=== PATIENT | female | born 1995 | race Caucasian/White ===

== ENCOUNTER → 2021-07-03 14:37 | Outpatient (CLI) | payer OTHER, SELFPAY ==
[2021-07-03 14:52] LABS: Absolute Lymphocyte Count 2.67 X10^3/uL (0.83-4.51); Absolute Neutrophil Count 9.2 X10^3/uL (2.0-7.7); Basophil# 0.06 X10^3/uL; Basophil% 0.4 % (0-1); Eosinophil# 0.36 X10^3/uL; Eosinophils% 2.6 % (0-5); Hematocrit 30.5 % (37-47); Hemoglobin 10.3 g/dL (12.0-15.0); Lymphocyte # 2.67 X10^3/ul (0.83-4.51); Mean Corp Hgb Conc 33.8 g/dL (32-36); Mean Corpuscular Hgb 28.9 pg (27.0-32.0); Mean Corpuscular Volume 85.7 fL (81-99); Mean Platelet Vol. 8.7 fl (6.2-12.0); Monocyte# 1.39 X10^3/uL; Monocyte% 9.9 % (0-10); NRBC Flagged by Analyzer 0 % (0-5); Neutrophil # 9.24 X10^3/uL (2.7-7.7); Platelet Count 282 K/mm3 (150-450); RBC Distribution Width CV 12.9 % (11.6-14.6); RBC Distribution Width SD 39.9 fl (35.1-43.9); Red Blood Count 3.56 M/mm3 (4.2-5.4)
[2021-07-03 15:03] LABS: Glucose Challenge Gest 1H 50g 90 mg/dL (70-140)
== END ==
PROVIDERS: PCP Family Medicine; Referring Provider Obstetrics & Gynecology; Visit Provider Obstetrics & Gynecology
DX: Z34.90 Encounter for supervision of normal pregnancy, unspecified, unspecified trimester (principal)
CPT/HCPCS: 36415; 82950; 85025

== ENCOUNTER 2021-08-28 16:48 | Outpatient (CLI) | payer OTHER, SELFPAY | END 2021-08-28 23:59 | disposition short-term general hospital (02) | LOC: LABSPEC 16:50 | PROVIDERS: PCP Family Medicine; Referring Provider Obstetrics & Gynecology; Visit Provider Obstetrics & Gynecology | DX: Z34.93 Encounter for supervision of normal pregnancy, unspecified, third trimester (principal) | CPT/HCPCS: 87081; 87186 ==

== ENCOUNTER 2021-10-01 19:52 | Inpatient (IN) | payer OTHER, SELFPAY ==
[2021-10-01 19:58] VITALS: BMI 37.6
[2021-10-01 20:12] VITALS: BP 142/82; PULSE 84; O2SAT 97
[2021-10-01] MEDS: Lactated Ringers 1,000 ML 200 ML IV (20:20)
[2021-10-01] MEDS: Lactated Ringers 500 ML 999 ML IV (20:33)
[2021-10-01] MEDS: 0.9% Normal Saline Single 100 ML IV.SOLN. INTRA-UTER (20:53)
[2021-10-01 20:54] LABS: Absolute Neutrophil Count 6.9 X10^3/uL (2.0-7.7); Basophil# 0.05 X10^3/uL; Basophil% 0.5 % (0-1); Eosinophil# 0.22 X10^3/uL; Hemoglobin 11.9 g/dL (12.0-15.0); Lymphocyte % 21.3 % (19-41); Mean Corpuscular Hgb 28.4 pg (27.0-32.0); Mean Corpuscular Volume 83.5 fL (81-99); Mean Platelet Vol. 9.6 fl (6.2-12.0); Monocyte# 1.29 X10^3/uL; Monocyte% 11.9 % (0-10); NRBC Flagged by Analyzer 0 % (0-5); Neutrophil # 6.92 X10^3/uL (2.7-7.7); Neutrophil % 63.9 % (47-70); Platelet Count 280 K/mm3 (150-450); RBC Distribution Width CV 14.3 % (11.6-14.6); RBC Distribution Width SD 43.5 fl (35.1-43.9); Red Blood Count 4.19 M/mm3 (4.2-5.4); White Blood Count 10.8 K/mm3 (4.4-11.0)
--- NOTE | 2021-10-01 20:58 | HP.PCM.OB_ITS ---
HPI - General General Date of Admission: 10/01/21 HPI Narrative WILLIAM CASEY, is a 26 F who presents for IOL secondary to postdates Maternal Data Information SUPRIYA Calculator Estimated Delivery Date Method Current WG Current Estimate 09/23/21 Manual 41w 1d PFSH PFSH Home Medications multivitamin no.47-iron fum 27 mg-folate no.1 1 mg-dha 300 mg capsule cap PO DAILY 05/22/21 [History Last Taken 09/30/21] famotidine [Pepcid] 20 mg PO DAILY 10/01/21 [History Last Taken 09/30/21] Allergy/AdvReac Type Severity Reaction Status Date / Time No Known Allergies Allergy Verified 09/26/21 16:08 Surgical History History of surgery on arm Social History household members: spouse housing: house current occupational status: employed current occupation: [employer] pets and animals: Yes Smoking Status: Never smoker second hand exposure: No alcohol intake: current alcohol intake frequency: holidays/special occasions only details: not while substance use type: does not use seatbelt use: always do you feel safe at home: Yes additional social history: - Dayday History 1 Elective abortions Hx Para 0 Spontaneous abortions Hx # Term Pregnancies Ectopic pregnancies Hx # Pregnancies Multiple births # of living children Visit Details Expected Delivery Route/Plan Labor Preferences- CB/BF classes: info given. pt interested labor support person:/Dayday labor intervention preferences: [] pain management options preferred: limited unless needed cut cord/dad catch: yes : yes PP control planned: discussed discussed possible routes of delivery and associated risks: [] special requests: [] Plans Covid status: symptoms/loss of smell Mar 2021. No test. Flu vaccine: decline Tdap vaccine: decline Rhogam: na LARC form signed: yes movement and labor precautions reviewed. Problem list reviewed and updated with the most current plan of care details and appropriate orders placed. Relevant counseling for the gestational age provided. Continue routine care and follow up unless otherwise noted in visit notes/problem list details OB Flowsheet Initial Weight: 200 lb Date -?-?-?-?-?-?-?-?-?-?-?-?- EGA Weight BP Urine Prot -?-?-?-?-?-?-?-?-?-?-?-?- Glucose FHR FuHt Pres Dilation -?-?-?-?-?-?-?-?-?-?-?-?- Effaced St Visit Note 06/12/21 -?-?-?-?-?-?-?-?-?-?-?-?- 25w 2d 202 lb 6 oz (+2 lb 6 oz) 120/68 Negative -?-?-?-?-?-?-?-?-?-?-?-?- Negative 125 -?-?-?-?-?-?-?-?-?-?-?-?- JV- release of r rafaels form signed today. Mattie on phone of prenatals gave us her due date today. No complaints. 07/03/21 -?-?-?-?-?-?-?-?-?-?-?-?- 28w 2d 212 lb 2 oz (+12 lb 2 oz) 110/60 Negative -?-?-?-?-?-?-?-?-?-?-?-?- Negative 132 28 -?-?-?-?-?-?-?-?-?-?-?-?- MH-No Vb, LOF. G ood FM. Still need labs and anatomy US from [facility]. Requested again. States covid in March:baby ASA daily and growth US 32 and 36 wk. Anemia-will start Fe. Nl glucose 07/18/21 -?-?-?-?-?-?-?-?-?-?-?-?- 30w 3d 212 lb (+12 lb) 130/56 Negative -?-?-?-?-?-?-?-?-?-?-?-?- Negative 126 30 -?-?-?-?-?-?-?-?-?-?-?-?- JV- no lof, vagi nal bleeding, or dec fm. growth us scheduled with MFM on 08/02 due to h/o covid in preg. 08/02/21 -?-?-?-?-?-?-?-?-?-?-?-?- 32w 4d 215 lb (+15 lb) 120/68 Negative -?-?-?-?-?-?-?-?-?-?-?-?- Negative 125 32 Cephalic -?-?-?-?-?-?-?-?-?-?-?-?- SM- no vb lof go od fm no reuglar ctx 08/28/21 -?-?-?-?-?-?-?-?-?-?-?-?- 36w 2d 220 lb (+20 lb) 130/74 Negative -?-?-?-?-?-?-?-?-?-?-?-?- Negative 130 36 Cephalic -?-?-?-?-?-?-?-?-?-?-?-?- SM- SM- ordered us for h/o covid . no vb lof good fm no reuglar ctx. 09/04/21 -?-?-?-?-?-?-?-?-?-?-?-?- 37w 2d 223 lb 2 oz (+23 lb 2 oz) 118/78 Negative -?-?-?-?-?-?-?-?-?-?-?-?- Negative 160 37 Cephalic -?-?-?-?-?-?-?-?-?-?-?-?- JV- GBS pos. lab or precautions discussed. No lof, vb, or dec fm. 09/11/21 -?-?-?-?-?-?-?-?-?-?-?-?- 38w 2d 225 lb (+25 lb) 122/80 Negative -?-?-?-?-?-?-?-?-?-?-?-?- Negative 125 38 Cephalic 1 -?-?-?-?-?-?-?-?-?-?-?-?- SM- no vb lof go od fm no regular ctx 09/18/21 -?-?-?-?-?-?-?-?-?-?-?-?- 39w 2d 226 lb 2 oz (+26 lb 2 oz) 120/82 Negative -?-?-?-?-?-?-?-?-?-?-?-?- Negative 124 38 Cephalic 1 -?-?-?-?-?-?-?-?-?-?-?-?- 30 -2 JV- no lof , vaginal bleeding or dec fm. plan for 41 week IOL if no labor this week. 09/26/21 -?-?-?-?-?-?-?-?-?-?-?-?- 40w 3d 226 lb (+26 lb) 130/80 -?-?-?-?-?-?-?-?-?-?-?-?- 139 38 Cephalic 2 -?-?-?-?-?-?-?-?-?-?-?-?- 80 -2 JV- no lof ,vaginal bleeding, or dec fm. plan for IOL at 41 weeks. 10/01/21 -?-?-?-?-?-?-?-?-?-?-?-?- 41w 1d 226 lb 6.636 oz (+26 lb 6.636 oz) 142/82 -?-?-?-?-?-?-?-?-?-?-?-?- -?-?-?-?-?-?-?-?-?-?-?-?- NST FHR Rate Baby A Baseline: 130 Variability:: Moderate Accelerations:: 15 x 15 Decelerations:: Late (isolated, resolved with IVFs and position changes) NST Reactive:: Yes Uterine Activity:: irregular ROS Constitutional Constitutional: Reports systems reviewed and no addt'l complaints, except as documented Eyes Eyes: Denies change in vision ENT HEENT: Reports systems reviewed and no addt'l complaints, except as documented; Denies headache(s) Cardiovascular Cardiovascular: Reports systems reviewed and no addt'l complaints, except as documented; Denies chest pain or dyspnea Respiratory/Chest Respiratory/Chest: Reports systems reviewed and no addt'l complaints, except as documented Gastrointestinal Gastrointestinal: Reports systems reviewed and no addt'l complaints, except as documented; Denies abdominal pain Genitourinary Genitourinary: Reports systems reviewed and no addt'l complaints, except as documented, contractions Details: present (irregular) and movement Details: present; Denies dysuria or genital lesions Musculoskeletal Musculoskeletal: Reports systems reviewed and no addt'l complaints, except as documented Neurologic Neurologic: Reports systems reviewed and no addt'l complaints, except as documented Endocrine Endocrinology: Reports systems reviewed and no addt'l complaints, except as documented Vital Signs Vital Signs Vital Signs: 10/01/21 20:12 Pulse Rate 84 Blood Pressure 142/82 H BP Systolic 142 BP Diastolic 82 Pulse Ox 97 Weight Weight: 226 lb 6.636 oz Body Mass Index (BMI) 37.6 Physical Exam Const alert, oriented x3, no apparent distress and healthy appearing HEENT normocephalic and moist oral mucous membranes Head and Scalp: atraumatic Neck full ROM, no lymphadenopathy, supple and thyroid normal General: trachea midline Lymph Lymphatic: no lymphadenopathy noted Chest inspection of chest normal Resp normal respiratory effort Cardio regular rate GI normal to inspection, nondistended, normoactive bowel sounds, soft to palpation and non-tender Inspection: gravid external exam normal Manual OB Exam: estimated gestational size appropriate, presentation cephalic, dilated, effaced and station Extremity normal to inspection General Extremity: Negative for edema Skin no rashes or lesions noted Neuro no focal motor deficits and deep tendon reflexes 2+ bilaterally Motor Exam: strength 5/5 throughout and clonus absent Psych mental status grossly normal Labs Labs Labs: Blood Type Pending Antibody Screen Pending Hct 35.0 % (37-47) L Hgb 11.9 g/dL (12.0-15.0) L Pap Smear Negative Hep Bs Antigen Pending Glucose 1 Hr 50 gm 90 mg/dL (70-140) Assessment & Plan (1) : QUALIFIERS: Weeks of gestation: 40 weeks Qualified Code(s): Z3A.40 - 40 weeks gestation of COMMENT: neg. GBS, NIPT- low risk boy; Anatomy US normal but need profile and left arm views. Needs to schedule still (2) Supervision of normal : COMMENT: PRR - URINE CX NEG SUPRIYA: 09/23/21 Spouse: Dayday (3) History of COVID-19: COMMENT: 03/2021:lost taste and smell. Not tested but positive. baby asa daily, growth US 32 and 36 wk (4) Anemia in preg-unspec: COMMENT: start FE (5) Positive GBS test: COMMENT: PCN at delivery (6) Encounter for induction of labor: COMMENT: iol pitocin and fb, epi if desired
[2021-10-01 21:10] VITALS: BP 125/73; PULSE 67; TEMP 37.1; O2SAT 97
[2021-10-01 21:10] LABS: ALB/GLOB Ratio 0.6 RATIO (0.9-2.4); AST(SGOT) 21 U/L (15-37); Alanine Aminotransfer ALT/SGPT 24 U/L (13-56); Albumin, Serum 2.5 g/dL (3.2-5.0); Alkaline Phosphatase 299 U/L (45-117); Anion Gap 5 (5-15); BUN 11 mg/dL (7-18); BUN/Creat Ratio 15.1 RATIO (10-20); Calcium,Total 9.1 mg/dL (8.5-10.1); Chloride 108 mmol/L (98-107); Creatinine, Serum 0.73 mg/dL (0.55-1.02); EST Glomerular Filtration Rate 102 mL/min (>60); Est Glom Filt Rate - Afr Amer 123 mL/min (>60); Estimated Creatinine Clearance 104.16 ml/min; Globulin 4.3 g/dL (2.2-4.2); Glucose 119 mg/dL (74-106); Potassium 3.8 mmol/L (3.5-5.1); Protein, Total 6.8 g/dL (6.4-8.2); Sodium Level 137 mmol/L (136-145)
[2021-10-01 21:58] VITALS: TEMP 37; O2SAT 97
[2021-10-01 21:59] VITALS: BP 135/86; PULSE 86; O2SAT 95
[2021-10-01] MEDS: Mag Hydrox/Al Hydrox/Simeth 30 ML UDC PO (22:03)
[2021-10-01 23:03] VITALS: TEMP 36.7; O2SAT 97
[2021-10-01 23:04] VITALS: BP 125/61; PULSE 77
[2021-10-02] VITALS (73 sets, daily range): BP systolic 96–150; BP diastolic 52–96; PULSE 54–108; TEMP 36.2–37.1; O2SAT 82–100
[2021-10-02] MEDS: Oxytocin 30 units/NS 500 ml 30 UNITS/500 ML IV.SOLN IV (00:45)
[2021-10-02] MEDS: Penicillin G 3,000,000 Units 50 ML 100 UNITS IV ×6 (00:57→20:15)
[2021-10-02] MEDS: Mag Hydrox/Al Hydrox/Simeth 30 ML UDC PO ×3 (04:43→20:07)
[2021-10-02] MEDS: Ondansetron 4 MG/2 ML Vial IV ×3 (07:12→22:05)
--- NOTE | 2021-10-02 07:25 | PN_ITS ---
Progress Note doing well, no pain medicine intervention current tracing: FHT: 130 min- Moderate variability reactive no decelerations category II tracing [place]: q2-3 Contractions reviewed tracing abnormalities since last note: occasional late decel, overall reassuring and resolve with position changes and IVFs A/P: AROM clear fluid continue expectant management Pitocin dose per protocol decreased to 4 milliunits due to frequency of contractions right after rupture of membranes.
[2021-10-02] MEDS: Lactated Ringers 1,000 ML 200 ML IV ×3 (07:37→19:19)
[2021-10-02] MEDS: proCHLORPERazine 10 MG/2 ML Vial IV ×2 (08:16→14:35)
[2021-10-02 08:39] LABS: Hepatitis B Surface Antigen Non-Reactive (Nonreactive)
[2021-10-02] MEDS: fentaNYL 100 MCG/2 ML Ampul IV (11:21)
[2021-10-02] MEDS: Lactated Ringers 500 ML 999 ML IV ×3 (15:21→20:42)
[2021-10-02] MEDS: fentaNYL-bupivacaine (epidural) 100 ML BAG EPIDURAL ×2 (16:06→20:15)
[2021-10-03] VITALS (22 sets, daily range): BP systolic 106–133; BP diastolic 51–79; PULSE 64–90; RESP 16; TEMP 36.2–37.4; O2SAT 86–99
[2021-10-03] MEDS: Mag Hydrox/Al Hydrox/Simeth 30 ML UDC PO (00:09)
[2021-10-03] MEDS: Penicillin G 3,000,000 Units 50 ML 100 UNITS IV (00:36)
[2021-10-03] MEDS: fentaNYL-bupivacaine (epidural) 100 ML BAG EPIDURAL (01:13)
--- NOTE | 2021-10-03 01:15 | EX.PCM.OBRPT ---
Assessment & Plan (1) Encounter for induction of labor: COMMENT: iol pitocin and fb, epi if desired (2) Positive GBS test: COMMENT: PCN at delivery (3) Anemia in preg-unspec: COMMENT: start FE (4) History of COVID-19: COMMENT: 03/2021:lost taste and smell. Not tested but positive. baby asa daily, growth US 32 and 36 wk (5) Influenza vaccination declined: (6) Supervision of normal : COMMENT: PRR - URINE CX NEG SUPRIYA: 09/23/21 Spouse: Dayday (7) : QUALIFIERS: Weeks of gestation: 40 weeks Qualified Code(s): Z3A.40 - 40 weeks gestation of COMMENT: neg. GBS, NIPT- low risk boy; Anatomy US normal but need profile and left arm views. Needs to schedule still (8) Vaginal delivery: COMMENT: IOL 41 SM boy Missael Maternal Data Information SUPRIYA Calculator Estimated Delivery Date Method Current WG Current Estimate 09/23/21 Manual 41w 3d Vaginal Delivery Operative Information Date of Procedure: 10/03/21 Pre-Operative Diagnosis: IOL Post-Operative Diagnosis: same Surgery / Procedure Performed: Spontaneous Vaginal Delivery Type of Anesthesia: Epidural Special Medications: none Estimated Blood Loss: 200 Fluids Replaced: crystalloid Findings Description of Procedure: Patient began pushing and delivered the head in the STEFANO presentation. The head was delivered atraumatically . The anterior and posterior shoulders delivered without complication followed by the rest of the and the was placed on the maternal abdomen. Delayed cord clamping was employed for approximately 60 seconds. Cord was clamped and cut and gentle traction was applied to the cord and the placenta delivered spontaneously immediately following it was noted to be intact with three-vessel cord. The perineum and vagina were inspected and noted to have a second degree laceration, repaired in the usual fashio nwti 3-0 vicryl rapide. EBL was 200. Patient and tolerated delivery well. Presentation: JEFFREY Amniotic Membrane Rupture Type: Artificial Amniotic Fluid Description: Clear Placental Delivery Description: Spontaneous Placenta Disposition: [facility] Cord Vessel Description: 3 Vessels Cord Entanglement: None Delayed Cord Clamping: Yes Post Vaginal Delivery Medications Given After Delivery: IV Pitocin Episiotomy Description: None Laceration: Perineal Extension/lac and 2nd degree Complication Complications: None Procedures Urinary/Genital [id number]: [id number] Vaginal Delivery global pkg
--- NOTE | 2021-10-03 01:18 | PCM.DC ---
Discharge Instructions Diet Discharge Diet: No restrictions Activity Discharge Activity: Return to Normal Activity, May Not Drive (while taking narcotic pain medications.) and May Shower May resume sexual activity in: 4-6 weeks Dressing / Incision Call your doctor if your incision/area has: Continuous Slow Oozing, Sudden Increased Bleeding, Increased Pain/ Swelling, Increased Redness and Foul Smelling Discharge Follow Up Care Please Follow Up With: Bridgette Conklin MD When: Call [phone] to make an appointment with your doctor in 6 weeks. If you had elevated blood pressure or 4th degree laceration, you will need to be seen in 2 weeks. Test Results: Test results from this visit will be discussed in further detail at your follow-up appointment, if applicable. Discharge Plan Admission Admit Date/Time: 10/01/21 19:52 Primary Reason for Your Visit: vaginal delivery Attending Provider: Bridgette Conklin Primary Care Provider: Lillian Bailey Discharge Orders/Prescriptions Prescriptions: No Action PNV-DHA 27 mg iron-1 mg -300 mg capsule PO DAILY RF: 0 famotidine [Pepcid] 20 mg tablet 20 mg PO DAILY RF: 0 Referrals / Follow Up: Lillian Bailey MD [Primary Care Provider] - Disposition Disposition (needs filled in before D/C Order can be placed): Home, Self Care
[2021-10-03] MEDS: Lactated Ringers 1,000 ML 200 ML IV (01:49)
[2021-10-03] MEDS: Oxytocin 30 units/NS 500 ml 30 UNITS/500 ML IV.SOLN 334 UNITS IV (02:22)
[2021-10-03] MEDS: Naproxen 500 MG Tablet PO ×3 (06:45→23:48)
[2021-10-03] MEDS: Acetaminophen 500 MG Tablet 1000 MG PO ×2 (09:05→20:21)
[2021-10-03] MEDS: 0.9% Saline Lock 10 ML Syringe IV (17:22)
[2021-10-04 03:45] VITALS: BP 120/61; PULSE 63; RESP 16; TEMP 36.9
[2021-10-04] MEDS: Acetaminophen 500 MG Tablet 1000 MG PO (05:53)
--- NOTE | 2021-10-04 07:41 | PCM.PN.OB ---
Subjective Subjective Patient doing well without complaints. Tolerating PO. Ambulating and voiding without difficulty. feeding well. Denies chest pain, shortness of breath, calf pain/swelling, fevers, chills, lightheadedness. Objective Data Objective Data Vital Signs: Vital Signs Temp Pulse Resp BP Pulse Ox 98.4 F 63 16 120/61 86 10/04/21 03:45 10/04/21 03:45 10/04/21 03:45 10/04/21 03:45 10/03/21 02:45 Oxygen Delivery Method Room Air Weight: 226 lb 6.636 oz Body Mass Index (BMI) 37.6 Intake & Output: Intake and Output for Last 24 Hours 10/02/21 10/03/21 10/04/21 23:59 23:59 23:59 Intake Total 5306.74 / 5306.74 1415.00 / 1415.00 Output Total 950 / 950 1550 / 1550 Balance 4356.74 / 4356.74 -135.00 / -135.00 Lab / Micro Data Result Diagrams: 10/01/21 20:20 10/01/21 20:20 Micro: Microbiology 10/01/21 20:20 Nasal Secretion SARS-CoV-2 Antigen (Rapid) - Final ROS Constitutional Constitutional: Reports systems reviewed and no addt'l complaints, except as documented Cardiovascular Cardiovascular: Reports systems reviewed and no addt'l complaints, except as documented Respiratory/Chest Respiratory/Chest: Reports systems reviewed and no addt'l complaints, except as documented Gastrointestinal Gastrointestinal: Reports systems reviewed and no addt'l complaints, except as documented Physical Exam Const alert, oriented x3 and no apparent distress HEENT Head and Scalp: atraumatic Resp normal respiratory effort GI soft to palpation and non-tender Bimanual Exam - Vag & Uterus: uterus non-tender Uterus Palpation: uterus fundus firm (below Umbilicus) Assessment & Plan (1) Vaginal delivery: COMMENT: IOL 41 SM boy Missael PLAN: s/p PPD # 1 1. routine post delivery care 2. breast feeding- support given 3. rh positive 4. rubella immune
[2021-10-04 08:30] VITALS: BP 119/71; PULSE 64; RESP 14; TEMP 36.3
[2021-10-04] MEDS: Senna/Docusate Sodium 1 Tablet PO (08:37)
== END 2021-10-04 12:15 | disposition home or self-care (01) | DRG 807 ==
PROVIDERS: Admitting Provider Obstetrics & Gynecology; PCP Family Medicine; Visit Provider Obstetrics & Gynecology
DX: O48.0 Post-term pregnancy (principal); Z37.0 Single live birth; D64.9 Anemia, unspecified; O70.1 Second degree perineal laceration during delivery; O99.824 Streptococcus B carrier state complicating childbirth; O99.02 Anemia complicating childbirth; Z3A.41 41 weeks gestation of pregnancy
CPT/HCPCS: 59025; 59050; 80053; 85025; 86850; 86900; 86901; 87340; 87426; 99218; J7120; A4216; G0378; J2405

== ENCOUNTER 2021-11-16 09:16 | Outpatient (CLI) | payer OTHER, SELFPAY ==
[2021-11-22 16:01] LABS: HPV Reflexed? NOT INDICATED
== END 2021-11-16 23:59 | disposition home or self-care (01) ==
LOC: LABSPEC 11-17 09:16
PROVIDERS: PCP Family Medicine; Visit Provider Obstetrics & Gynecology
DX: Z12.4 Encounter for screening for malignant neoplasm of cervix (principal)
CPT/HCPCS: 88175; G0145

== ENCOUNTER → 2022-09-30 | Outpatient (CLI) | payer OTHER, SELFPAY ==
[2022-10-01 22:07] LABS: Chlamydia By Nucleic Acid AMP Negative (Negative)
[2022-10-02 19:46] LABS: Gonococcus By Nucleic Acid AMP Negative (Negative)
== END | disposition home or self-care (01) ==
LOC: LABSPEC 11:58
PROVIDERS: PCP Family Medicine; Referring Provider Obstetrics & Gynecology; Visit Provider Obstetrics & Gynecology
DX: O99.210 Obesity complicating pregnancy, unspecified trimester (principal); Z3A.00 Weeks of gestation of pregnancy not specified
CPT/HCPCS: 87086; 87088; 87491; 87591

== ENCOUNTER → 2022-10-07 | Outpatient (CLI) | payer OTHER, SELFPAY ==
[2022-10-07 11:11] LABS: Absolute Lymphocyte Count 2.29 X10^3/uL (0.83-4.51); Absolute Neutrophil Count 5.3 X10^3/uL (2.0-7.7); Basophil# 0.02 X10^3/uL; Basophil% 0.2 % (0-1); Eosinophil# 0.12 X10^3/uL; Eosinophils% 1.4 % (0-5); Hematocrit 36.2 % (37-47); Hemoglobin 12.5 g/dL (12.0-15.0); Lymphocyte # 2.29 X10^3/ul (0.83-4.51); Mean Corp Hgb Conc 34.5 g/dL (32-36); Mean Corpuscular Hgb 29.3 pg (27.0-32.0); Mean Corpuscular Volume 84.8 fL (81-99); Mean Platelet Vol. 8.6 fl (6.2-12.0); Monocyte# 0.77 X10^3/uL; Monocyte% 9.1 % (0-10); NRBC Flagged by Analyzer 0 % (0-5); Neutrophil # 5.25 X10^3/uL (2.7-7.7); Neutrophil % 61.9 % (47-70); Platelet Count 303 K/mm3 (150-450); RBC Distribution Width CV 12.4 % (11.6-14.6); Red Blood Count 4.27 M/mm3 (4.2-5.4); White Blood Count 8.5 K/mm3 (4.4-11.0)
[2022-10-07 11:14] LABS: Glucose Challenge Gest 1H 50g 104 mg/dL (70-140)
[2022-10-07 11:37] LABS: NATERA MAILED SPECIMEN
[2022-10-07 11:56] LABS: HIV - WCH Non-Reactive (Nonreactive); Hepatitis B Surface Antigen Non-Reactive (Nonreactive); Hepatitis C Antibody Non-Reactive (Nonreactive); Rubella IgG Reactive (Nonreactive); Syphilis Antibodies Non-reactive
== END | disposition home or self-care (01) ==
LOC: PAVLAB 10:15
PROVIDERS: PCP Family Medicine; Referring Provider Obstetrics & Gynecology; Visit Provider Obstetrics & Gynecology
DX: O99.210 Obesity complicating pregnancy, unspecified trimester (principal); Z34.91 Encounter for supervision of normal pregnancy, unspecified, first trimester
CPT/HCPCS: 36415; 82950; 85025; 86703; 86762; 86780; 86803; 86850; 86900; 86901; 87340

== ENCOUNTER → 2023-03-18 | Outpatient (CLI) | payer OTHER, SELFPAY ==
[2023-03-18 10:12] LABS: Absolute Lymphocyte Count 2.27 X10^3/uL (0.83-4.51); Absolute Neutrophil Count 8.7 X10^3/uL (2.0-7.7); Basophil# 0.06 X10^3/uL; Basophil% 0.5 % (0-1); Eosinophil# 0.36 X10^3/uL; Eosinophils% 2.9 % (0-5); Hematocrit 34.8 % (37-47); Hemoglobin 11.5 g/dL (12.0-15.0); Lymphocyte # 2.27 X10^3/ul (0.83-4.51); Lymphocyte % 18.2 % (19-41); Mean Corpuscular Hgb 29.3 pg (27.0-32.0); Mean Corpuscular Volume 88.5 fL (81-99); Mean Platelet Vol. 8.7 fl (6.2-12.0); Monocyte# 0.86 X10^3/uL; Monocyte% 6.9 % (0-10); NRBC Flagged by Analyzer 0 % (0-5); Neutrophil % 69.8 % (47-70); Platelet Count 236 K/mm3 (150-450); RBC Distribution Width CV 13.5 % (11.6-14.6); RBC Distribution Width SD 43.6 fl (35.1-43.9); Red Blood Count 3.93 M/mm3 (4.2-5.4); White Blood Count 12.5 K/mm3 (4.4-11.0)
[2023-03-18 10:36] LABS: Glucose Challenge Gest 1H 50g 140 mg/dL (70-140)
[2023-03-18 11:25] LABS: HIV - WCH Non-Reactive (Nonreactive); Syphilis Antibodies Non-reactive
== END | disposition home or self-care (01) ==
LOC: PAVLAB 09:46
PROVIDERS: PCP Family Medicine; Referring Provider Obstetrics & Gynecology; Visit Provider Obstetrics & Gynecology
DX: O09.90 Supervision of high risk pregnancy, unspecified, unspecified trimester (principal); Z13.1 Encounter for screening for diabetes mellitus; Z3A.00 Weeks of gestation of pregnancy not specified
CPT/HCPCS: 36415; 82950; 85025; 86703; 86780

== ENCOUNTER → 2023-04-09 | Outpatient (CLI) | payer OTHER, SELFPAY | END | disposition home or self-care (01) | LOC: LABSPEC 17:05 | PROVIDERS: Visit Provider Obstetrics & Gynecology | DX: O09.90 Supervision of high risk pregnancy, unspecified, unspecified trimester (principal); Z3A.00 Weeks of gestation of pregnancy not specified | CPT/HCPCS: 87077; 87081; 87186 ==

== ENCOUNTER 2023-05-07 16:00 | Inpatient (IN) | payer OTHER, SELFPAY ==
[2023-05-07 16:20] VITALS: BP 132/82; PULSE 90; TEMP 37.2
[2023-05-07 16:36] VITALS: BMI 37.0
--- NOTE | 2023-05-07 17:21 | NURSING ---
Labs drawn at this time, no IV started yet d/t pt preference. Provider aware of plan.
[2023-05-07 17:52] LABS: Absolute Lymphocyte Count 2.43 X10^3/uL (0.83-4.51); Absolute Neutrophil Count 8.5 X10^3/uL (2.0-7.7); Basophil# 0.06 X10^3/uL; Basophil% 0.5 % (0-1); Eosinophils% 0.8 % (0-5); Hemoglobin 11.7 g/dL (12.0-15.0); Lymphocyte # 2.43 X10^3/ul (0.83-4.51); Lymphocyte % 19.8 % (19-41); Mean Corp Hgb Conc 32.5 g/dL (32-36); Mean Corpuscular Hgb 28.4 pg (27.0-32.0); Mean Corpuscular Volume 87.4 fL (81-99); Mean Platelet Vol. 9.3 fl (6.2-12.0); Monocyte# 1.12 X10^3/uL; Monocyte% 9.1 % (0-10); NRBC Flagged by Analyzer 0 % (0-5); Neutrophil % 69.1 % (47-70); Platelet Count 250 K/mm3 (150-450); RBC Distribution Width CV 14.2 % (11.6-14.6); RBC Distribution Width SD 45.5 fl (35.1-43.9); Red Blood Count 4.12 M/mm3 (4.2-5.4); White Blood Count 12.3 K/mm3 (4.4-11.0)
[2023-05-07 17:52] LABS: Bedside Glucose 103 mg/dL (74-106)
[2023-05-07 18:35] LABS: Syphilis Antibodies Non-reactive
--- NOTE | 2023-05-07 19:39 | NURSING ---
pt refuses IV at this time
[2023-05-07 20:04] VITALS: TEMP 36.7; O2SAT 94
[2023-05-07 20:05] VITALS: BP 142/62; PULSE 74
--- NOTE | 2023-05-07 20:31 | HP.PCM_ITS ---
History and Physical Vital Signs 05/01/2315:41 05/07/2311:05 05/07/2311:06 Height 5 ft 5 in 5 ft 5 in 5 ft 5 in Weight: 223 lb 6 oz BMI 37.1 BP 122/82 H Intake Visit Reasons: 42 WK OB Bill Peddler Required: No Is patient in pain?: No Allergies No Known Allergies Allergy (Verified 05/07/23 11:05) Medications multivitamin no.47-iron fum 27 mg-folate no.1 1 mg-dha 300 mg capsule (PNV-DHA) cap PO DAILY 05/22/21 [History Confirmed 05/07/23] blood sugar diagnostic (Blood Glucose Test strips) #120 ea 03/26/23 [Rx Confirmed 05/07/23] blood-glucose meter #1 ea 03/26/23 [Rx Confirmed 05/07/23] lancets #100 ea 03/26/23 [Rx Confirmed 05/07/23] Last Menstrual Period: 07/18/22 Zika: Zika virus screening: Negative : No PFSH PFSH Medical History Vaginal delivery Surgical History History of surgery History of surgery on arm Social History adopted: No household members: spouse and children housing: house number of children: 1 current occupational status: employed current occupation: advising endodontic assistant pets and animals: Yes pets and animals: dog(s) history of recent travel: Yes sexually active: Yes Smoking Status: Never smoker Electronic Cigarette Use: not used second hand exposure: No alcohol intake: current alcohol intake frequency: holidays/special occasions only details: not while substance use type: does not use well-balanced diet: daily or most days caffeine: No eating out: 1-3 times/week what type of physical activity do you participate in: walking seatbelt use: always do you feel safe at home: Yes additional social history: - Dayday History 2 Elective abortions Hx Para 1 Spontaneous abortions Hx # Term Pregnancies Ectopic pregnancies Hx # Pregnancies Multiple births # of living children 1 Past Pregnancies Del. Date Name GA/Weeks Outcome Route Bth Weight Gen Labor Lgth Anesthesia Del Locatn Provider FOB 10/03/21 Missael 41 live - full term 9lbs 3oz Male [facility] Katerin Delivery Date: 10/03/21 Last Updated by: Carlotta Mejia IOL 41 wks HPI 42 WK OB Details: WILLIAM CASEY is a 27 year old who presents for routine OB visit. OB Visit SUPRIYA Calculator Estimated Delivery Date Method Current WG Current Estimate 04/24/23 LMP (Certain) 41w 6d Other Estimates 04/23/23 Ultrasound #1 42w 0d Expected Delivery Route/Plan Labor Preferences- CB/BF classes: [] labor support person: Dayday labor intervention preferences: goal for no IOL pain management options preferred: unmedicated cut cord/dad catch: [] : yes PP control planned: [] discussed possible routes of delivery and associated risks: [] special requests: declines gbs medications Specific Issue/Plans Covid status: discussed Flu vaccine: discussed Tdap vaccine:declines Rhogam: na LARC form signed: completed. Problem list reviewed and updated with the most current plan of care details and appropriate orders placed. Relevant counseling for the gestational age provided. Continue routine care and follow up unless otherwise noted in visit notes/problem list details Initial Weight: 200 lb Date -?-?-?-?-?-?-?-?-?-?-?-?- EGA Weight BP Urine Prot -?-?-?-?-?-?-?-?-?-?-?-?- Glucose FHR FuHt Pres Dilation -?-?-?-?-?-?-?-?-?-?-?-?- Effaced St Visit Note 09/30/22-?-?-?-?-?-?-?-?-?-?-?-?- 10w 4d 200 lb 4 oz(+4 oz) 126/73 -?-?-?--?-?-?-?-?-?-?-?-?- 160 -?-?-?-?-?-?-?-?-?-?-?-?- SM_ CRL cons with LMP 10/31/22-?-?-?-?-?-?-?-?-?-?-?-?- 15w 0d 194 lb(-6 lb) 116/64 Negative -?-?-?-?-?-?-?-?-?-?-?-?- Negative 150 -?-?-?-?-?-?-?-?-?-?-?-?- SM- no vb crmaping 11/25/22-?-?-?-?-?-?-?-?-?-?-?-?- 18w 4d 200 lb 8 oz(+8 oz) 131/73 Negative -?-?-?-?-?-?-?-?-?-?-?-?- Negative 140 -?-?-?-?-?-?-?-?-?-?-?-?- SM- no vb cramping 01/22/23-?-?-?-?-?-?-?-?-?-?-?-?- 26w 6d 211 lb 4 oz(+11 lb 4 oz) 121/75 Negative -?-?-?-?-?-?-?-?-?-?-?-?- Negative 144 -?-?-?-?-?-?-?-?-?-?-?-?- JV- no lof, vaginal bleeding, or dec fm. 02/10/23-?--?-?-?-?-?-?-?-?-?-?-?- 29w 4d 212 lb 6 oz(+12 lb 6 oz) 116/73 Negative -?-?-?-?-?-?-?-?-?-?-?-?- Negative 140 30 -?-?-?-?--?-?-?-?-?-?-?-?- SM- no vb lof good fm no regular ctx 02/26/23-?-?-?-?-?-?-?-?-?-?-?-?- 31w 6d 216 lb 6 oz(+16 lb 6 oz) 119/74 Negative -?-?-?-?-?-?-?-?-?-?-?-?- Negative 145 31 -?-?-?-?-?-?-?-?-?-?-?-?- LC- no lof/ctx/vb. good fm. no concerns. to obtain 28 week labs encouraged to obtain evans. 03/26/23-?-?-?-?-?-?-?-?-?-?-?-?- 35w 6d 219 lb 6 oz(+19 lb 6 oz) 104/68 Negative -?-?-?-?-?-?-?-?-?-?-?-?- Negative 129 35 -?-?-?-?-?-?-?-?-?-?-?-?- JV- no lof, vaginal bleeding, or dec fm. pt does not want to do her 3 hr gtt. ordering glucose monitoring. pt understands baby will be tested. 04/01/23-?-?-?-?-?-?-?-?-?-?-?-?- 36w 5d 219 lb 4 oz(+19 lb 4 oz) 108/70 Negative -?-?-?-?-?-?-?-?-?-?-?-?- Negative 160 37 -?-?-?-?-?-?-?-?-?-?-?-?- KW-no lof/vb/ctx. good fm. GBS next week per pt request. reports good blood sugars. 04/09/23-?-?-?-?--?-?-?-?-?-?-?-?- 37w 6d 218 lb(+18 lb) 121/75 Negative -?-?-?-?-?-?-?-?-?-?-?-?- Negative 162 38 Cephalic -?-?-?-?-?-?-?-?-?-?-?-?- JV- GBS collected. no lof, vaginal bleeding, or dec fm. declines exam. vtx on joselin's 04/15/23-?-?-?-?-?-?-?-?-?-?-?-?- 38w 5d 220 lb 8 oz(+20 lb 8 oz) 124/75 Negative -?-?-?-?-?-?-?-?-?-?-?-?- Negative 120 29 Cephalic 2-?-?-?-?-?-?-?-?-?- ?-?-?- 50 -3 Kw-no vb/lof/reg ctx. goo d fm. GBS pos-does not want PCN in labor. 04/21/23-?-?-?-?-?-?-?-?-?-?-?-?- 39w 4d 223 lb(+23 lb) 123/69 Trace -?-?-?-?-?-?-?-?-?-?-?-?- Negative 140 39 -?-?-?-?-?-?-?-?-?-?-?-?- LC- no lof/vb/ctx. good fm. declines VB. vtx on leopolds. 05/01/23-?-?-?-?-?-?-?-?-?-?-?-?- 41w 0d 224 lb 6 oz(+24 lb 6 oz) 137/70 Trace -?-?-?-?-?-?-?-?-?-?-?-?- Negative 125 40 -?-?-?-?-?-?-?-?-?-?-?-?- KW-no vb/lof/regular ctx. good movement. reactive NST. growth US ordered. declines SVE and membrane sweep today. KW-no vb/lof/regular ctx. good movement. reactive NST. Fluid scan today by SM. declines SVE and membrane sweep today. KW-no vb/lof/regular ctx. good movement. reactive NST. Fluid scan today by SM. did SVE and membrane sweep today. Growth planned for early next week 05/07/23-?-?-?-?-?-?-?-?-?-?-?-?- 41w 6d 223 lb 6 oz(+23 lb 6 oz) 122/82 Negative -?-?-?-?-?-?-?-?-?-?-?-?- Negative 130 38 -?-?-?-?-?-?-?-?-?-?-?-?- SM- rober 2.6 SM- rober 2.6 plan immediate IOL ACOG First Trimester First Trimester: Desire for , Alcohol, Tobacco Cessation, Illicit/Recreational Drug/Substance Use, Intimate Partner Violence, Barriers to care, Unstable Housing, Communication Barriers, Environmental/Work Hazards, Anticipated Course of Care, Toxoplasmosis Precations, Use of Any medications, Sexual activity, Exercise, Dental Care, Sauna/Hot tub use, Seat Belt use, Childbirth classes/Hospital facilities, , Travel, Indications for Ultrasound and Screening for Aneuploidy Second Trimester Second Trimester: Signs and Symptoms of Labor, Selecting a care provider, Reproductive Life Planning & Contreception, Care Planning, Depression/Anxiety and Intimate Partner Violence; Discussed Tobacco Cessation Third Trimester Third Trimester: Pain Management Plans, Labor support person(s), Immediate Larc, Circumcision preference, Movement Monitoring, Signs and Symptoms of Preeclampsia and [place] [facility] Diagnostics Diagnostics: Glucose 1 Hr 50 gm 140 mg/dL (70-140) HIV 1&2 Antibody Non-Reactive (Nonreactive) Hgb 11.5 g/dL (12.0-15.0) L Hct 34.8 % (37-47) L Details: HIV: Urine Culture: Sequential Screen: NIPT Screen: ROS Const Reports system reviewed and no additional complaints, except as documented Card Reports system reviewed and no additional complaints, except as documented Resp Reports system reviewed and no additional complaints, except as documented GI Reports system reviewed and no additional complaints, except as documented and Reports nausea Reports system reviewed and no additional complaints, except as documented Musc Reports system reviewed and no additional complaints, except as documented Exam Const General: cooperative, healthy appearing, comfortable and anxious HENMT Head: normal to inspection Nose: external nose normal Face and sinus: normal facial exam Neck Neck: normal visual inspection, full ROM and no lymphadenopathy Thyroid: thyroid normal Chest Chest palpation & inspection: normal inspection of the chest Resp Effort & Inspection: normal respiratory effort GI Inspection: normal to inspection Palpation: soft and other (gravid uterus) Other: infant vertex and appropriate size for gestational age Other: Cervical Exam: Extrem General: pedal edema Office Procedures Non-stress Test Non-Stress Test Indications for Monitoring: Yes post term 40+ Heart Rate Baseline: 140 Heart Rate Variability: moderate Movement: Present Heart Rate Accelerations: Present Decelerations: Absent Contractions: Absent Impression: Yes Reactive Non-Stress Test Category 1 Results POC Urinalysis 2 Dip (Clinic) Office Urine Glucose Negative Last Edit by Flavia Crawford on 05/07/23 11:11 Office Urine Protein Negative Last Edit by Flavia Crawford on 05/07/23 11:11 Coding Level of Care Code OB Routine Diagnoses Post-dates O48.0 Positive GBS test B95.1 Abnormal glucose R73.09 Supervision of high-risk O09.90 Obesity affecting O99.210 41 weeks gestation of O48.0; Z3A.41 Weeks of gestation: 41 weeks Oligohydramnios in third trimester O41.03X0 CPT Codes Non-Stress Test (54308) Assessment and Plan Assessment and Plan (1) Post-dates : Status: Acute (2) Positive GBS test: Status: Acute Comment: PCN at delivery (3) Abnormal glucose: Status: Acute Comment: refused 3 HR GTT . glucometer ordered. had normal glucose x2 weeks. (4) Supervision of high-risk : Status: Acute Comment: PRR SUPRIYA:04/24/23 girl Love PC: Missael, Spouse: Dayday (5) Obesity affecting : Status: Acute Comment: 1 TM gct encouraged healthy weight gain (6) : Status: Acute Qualifiers: Weeks of gestation: 41 weeks Qualified Code(s): O48.0 - Post-term ; Z3A.41 - 41 weeks gestation of Comment: GBS pos, NIPT low risk. declined carrier and ntd screening.nl anatomy (7) Oligohydramnios in third trimester: Status: Acute Comment: rober 2.6 cm plan iol now fb Orders: Orders POC Urinalysis 2 Dip (Clinic) Today O48.0 - Post-term OB NST Today O48.0 - Post-term Patient presents IOL, plan management for with membrane sweeping, and then pitocin/AROM. Pain management: prefers minimal intervention GBS positive- declined antibiotics. discussed risks to baby about not treating, offered ampicillin, patient declined.. Management of any complications: oligohydramnios 2.6- recommend IOL I have reviewed the [facility] and made any clinically relevant updates.
[2023-05-07 21:29] VITALS: TEMP 37.2
[2023-05-07 21:30] VITALS: BP 145/74; PULSE 77; PULSE 81; O2SAT 96
[2023-05-08] VITALS (46 sets, daily range): BP systolic 105–150; BP diastolic 55–83; PULSE 59–96; RESP 16; TEMP 36.6–37.1; O2SAT 96–99
[2023-05-08] MEDS: Oxytocin 10 UNITS/ML Vial IM (11:05)
[2023-05-08] MEDS: Lidocaine 1% (20 ml mdv) 20 ML Vial INFILT (11:10)
--- NOTE | 2023-05-08 13:10 | OP.PCM_ITS ---
Assessment & Plan (1) Oligohydramnios in third trimester: COMMENT: rober 2.6 cm plan iol now fb (2) Post-dates : (3) Abnormal glucose: COMMENT: refused 3 HR GTT . glucometer ordered. had normal glucose x2 weeks. (4) : QUALIFIERS: Weeks of gestation: 41 weeks Qualified Code(s): O48.0 - Post-term ; Z3A.41 - 41 weeks gestation of COMMENT: GBS pos, NIPT low risk. declined carrier and ntd screening.nl anatomy (5) Obesity affecting : COMMENT: 1 TM gct encouraged healthy weight gain (6) Positive GBS test: COMMENT: PCN at delivery- patient declined, patient counseled regarding risks of infection, compromise and (7) Supervision of high-risk : COMMENT: PRR SUPRIYA:04/24/23 girl Love PC: Missael, Spouse: Dayday (8) Vaginal delivery: COMMENT: IOL 42 girl Love SM oligo Maternal Data Information SUPRIYA Calculator Estimated Delivery Date Method Current WG Current Estimate 04/24/23 LMP (Certain) 42w 0d Other Estimates 04/23/23 Ultrasound #1 42w 1d Vaginal Delivery Operative Information Date of Procedure: 05/08/23 Pre-Operative Diagnosis: see a/p diagnoses Post-Operative Diagnosis: same Surgery / Procedure Performed: Spontaneous Vaginal Delivery Type of Anesthesia: Local with 1% Lidocaine Special Medications: none Estimated Blood Loss: 300 Fluids Replaced: crystalloid Findings Description of Procedure: Patient began pushing and delivered the head in the JEFFREY presentation. The head was delivered atraumatically and a loose nuchal cord ?1 was identified and the delivered through without complication. The anterior and posterior shoulders delivered without complication followed by the rest of the and the was placed on the maternal abdomen. Delayed cord clamping was employed for approximately 60 seconds. Cord was clamped and cut and gentle traction was applied to the cord and the placenta delivered spontaneously immediately following it was noted to be intact with three-vessel cord. The perineum and vagina were inspected and noted to have a second degree perineal laceration which was repaired after injecting with lidocaine in the usual fashion with 3-0 vicryl rapide. . EBL was 300. Patient and tolerated delivery well. Amniotic Fluid Description: Clear Placental Delivery Description: Spontaneous Placenta Disposition: [facility] Cord Vessel Description: 3 Vessels Delayed Cord Clamping: Yes Post Vaginal Delivery Medications Given After Delivery: IV Pitocin and IM Pitocin Episiotomy Description: None Complication Complications: None Procedures Urinary/Genital [id number]: [id number] Vaginal Delivery [facility]
--- NOTE | 2023-05-08 13:10 | DCINST_ITS ---
Discharge Instructions Diet Discharge Diet: No restrictions Activity Discharge Activity: Return to Normal Activity, May Not Drive (while taking narcotic pain medications.) and May Shower May resume sexual activity in: 4-6 weeks Dressing / Incision Call your doctor if your incision/area has: Continuous Slow Oozing, Sudden Increased Bleeding, Increased Pain/ Swelling, Increased Redness and Foul Smelling Discharge Follow Up Care Please Follow Up With: Bridgette Conklin MD When: Call [phone] to make an appointment with your doctor in 6 weeks. If you had elevated blood pressure or 4th degree laceration, you will need to be seen in 2 weeks. Test Results: Test results from this visit will be discussed in further detail at your follow- up appointment, if applicable. Discharge Plan Admission Admit Date/Time: 05/07/23 16:00 Attending Provider: Bridgette Conklin Discharge Orders/Prescriptions Prescriptions: No Action PNV-DHA 27 mg iron-1 mg -300 mg capsule 1 cap PO DAILY (DME) blood-glucose meter Misc See Rx Instructions .MEDSUPPLY Qty: 1 0RF Rx Instructions: As directed- Test fasting and 2 hours after meals (DME) lancets Misc See Rx Instructions .MEDSUPPLY Qty: 100 4RF Rx Instructions: As directed (DME) Blood Glucose Test Strip See Rx Instructions .Route Qty: 120 3RF Rx Instructions: As directed- fasting and 2 hr post meals Disposition Disposition (needs filled in before D/C Order can be placed): Home, Self Care
[2023-05-09 05:04] VITALS: BP 108/53; PULSE 70; RESP 16; TEMP 36.6; O2SAT 96; O2SAT 97
[2023-05-09 05:05] VITALS: BP 98/51; PULSE 67
[2023-05-09 05:06] VITALS: BP 108/53; PULSE 63
[2023-05-09 07:23] VITALS: BP 122/66; PULSE 79; O2SAT 80
[2023-05-09 07:51] VITALS: BP 122/66; PULSE 79; RESP 17; TEMP 36.6; O2SAT 98
--- NOTE | 2023-05-09 09:38 | PCM.PN.OB ---
Subjective Subjective Patient doing well without complaints. Tolerating PO. Ambulating and voiding without difficulty. Feeding well. Denies chest pain, shortness of breath, calf pain/swelling, fevers, chills, lightheadedness. Objective Data Objective Data Vital Signs: Vital Signs Temp Pulse Resp BP Pulse Ox O2 Del Method 98 F 79 17 122/66 H 98 Room Air 05/09/23 07:51 05/09/23 07:51 05/09/23 07:51 05/09/23 07:51 05/09/23 07:51 05/09/23 07:51 Oxygen Delivery Method Room Air Weight: 222 lb 6.4 oz Body Mass Index (BMI) 37.0 Intake & Output: Intake and Output for Last 24 Hours 05/07/23 05/08/23 05/09/23 23:59 23:59 23:59 Intake Total 100 / 100 Output Total 1200 / 1200 Balance 100 / 100 -1200 / -1200 Lab / Micro Data 05/07/23 17:21 Physical Exam Const alert, oriented x3 and no apparent distress HEENT Head and Scalp: atraumatic Chest Nipple/Areola: nipples/areola normal Resp normal respiratory effort GI soft to palpation and non-tender Bimanual Exam - Vag & Uterus: uterus non-tender Uterus Palpation: uterus fundus firm (below Umbilicus) Psych mental status grossly normal Assessment & Plan (1) Vaginal delivery: COMMENT: IOL 42 girl Love SM oligo PLAN: s/p PPD # 1 1. routine post delivery care 2. breast feeding- support given 3. rh positive 4. rubella immune 5. d/c home today
[2023-05-09 14:41] VITALS: BP 111/50; PULSE 77; RESP 17; TEMP 36.4; O2SAT 98
== END 2023-05-09 16:55 | disposition home or self-care (01) | DRG 806 ==
PROVIDERS: Admitting Provider Obstetrics & Gynecology; Visit Provider Obstetrics & Gynecology
DX: O48.0 Post-term pregnancy (principal); Z37.0 Single live birth; O41.03X0 Oligohydramnios, third trimester, not applicable or unspecified; O99.214 Obesity complicating childbirth; O99.814 Abnormal glucose complicating childbirth; O69.81X0 Labor and delivery complicated by cord around neck, without compression, not applicable or unspecified; O70.1 Second degree perineal laceration during delivery; O99.824 Streptococcus B carrier state complicating childbirth; Z3A.41 41 weeks gestation of pregnancy
CPT/HCPCS: 59025; 59050; 82962; 85025; 86780; 86850; 86900; 86901; 99221; G0378